=== PATIENT | female | born 1985 | race Asian ===

== ENCOUNTER → 2017-03-05 | Outpatient (CLI) | payer OTHER | END | disposition home or self-care (01) | LOC: C.PATH 08:20 | DX: R59.0 Localized enlarged lymph nodes (principal) ==

== ENCOUNTER → 2017-06-03 | Outpatient (CLI) | payer OTHER ==
--- NOTE | 2017-06-03 08:17 | DIAGNOSTIC IMAGING REPORT ---
ULTRASOUND OF THE THYROID GLAND CLINICAL HISTORY: Hypothyroidism. Reported history of thyroidectomy. COMPARISON STUDY: No priors. TECHNIQUE: Real-time, grayscale, and color flow sonography of the thyroid gland is performed utilizing a high-frequency linear transducer. Images are reviewed in the transverse and longitudinal planes. FINDINGS: Thyroid gland: The thyroid gland is not identified and is reported surgically absent. No recurrent/residual soft tissue lesion is suggested in the thyroid bed. Soft tissues: Scattered benign-appearing cervical nodes are incidentally noted. No concerning adenopathy is seen. IMPRESSION: 1. Status post thyroidectomy. 2. There is no evidence of recurrent lesion in the operative bed or pathologic adenopathy. Electronically signed by: Rickey Borrego M.D. 06/03/2017 8:15 AM Dictated Date/Time: 06/03/2017 8:13 AM
== END | disposition home or self-care (01) ==
LOC: C.ULTR 07:41
PROVIDERS: ATTEND Internal Medicine Endocrinology, Diabetes & Metabolism
DX: Z86.39 Personal history of other endocrine, nutritional and metabolic disease (principal)